=== PATIENT | male | born 1990 | race Caucasian/White ===

== ENCOUNTER 2024-12-22 03:23 | Inpatient (IN) | payer MEDICAID, SELFPAY ==
[2024-12-22] VITALS (21 sets, daily range): BP systolic 97–141; BP diastolic 52–84; PULSE 60–84; RESP 12–18; TEMP 36.3–37; O2SAT 96–100; BMI 22.8; BMI 24.0
[2024-12-22 04:14] LABS: Hematocrit 38.4 % (40-54); Hemoglobin 12.8 g/dL (13.0-16.5); Immature Granulocytes Count 0.270 X10^3/uL (0.0-0.0); Mean Corp Hgb Conc 33.3 g/dL (32-36); Mean Corpuscular Volume 88.1 fL (80-94); Mean Platelet Vol. 9.1 fl (6.2-12.0); NRBC Flagged by Analyzer 0 % (0-5); Platelet Count 580 K/mm3 (150-450); RBC Distribution Width CV 13.3 % (11.6-14.6); RBC Distribution Width SD 43.6 fl (35.1-43.9); Red Blood Count 4.36 M/mm3 (4.6-6.2); White Blood Count 13.4 K/mm3 (4.4-11.0)
[2024-12-22] MEDS: 0.9% Normal Saline (1000mL) 1,000 ML 999 ML IV (04:14)
[2024-12-22] MEDS: Vancomycin HCl 1,250 MG in 0.9% Normal Saline (250mL Bag) 250 ML 167 MG IV (04:18)
[2024-12-22 04:43] LABS: AST(SGOT) 36 U/L (<=37); Alanine Aminotransfer ALT/SGPT 105 U/L (<=46); Albumin, Serum 3.1 g/dL (3.5-5.0); Alcohol, Blood (Medical)-Serum < 10.1 mg/dL (<=10.0); Alkaline Phosphatase 129 U/L (40-129); Anion Gap 13 (5-15); BUN 8 mg/dL (4-19); BUN/Creat Ratio 10.6 RATIO (10-20); Bilirubin, Direct 0.20 mg/dL (0.00-0.30); Calcium,Total 8.8 mg/dL (7.6-11.0); Carbon Dioxide 23.3 mmol/L (21.0-32.0); Chloride 100 mmol/L (98-108); Estimated Creatinine Clearance 161.02 ml/min (50-250); Globulin 3.0 g/dL (2.2-4.2); Glucose 153 mg/dL (70-99); Magnesium 2.0 mg/dL (1.5-2.2); Potassium 3.3 mmol/L (3.3-5.1)
--- NOTE | 2024-12-22 05:15 | CT_ITS ---
PROCEDURE: ABDOMEN/PELVIS W IV CONT ONLY 12/22/2024 REASON FOR EXAM: LARGE ABDOMINAL ABSCESS TECHNIQUE: Procedure Code: [id number] Modality: CT Procedure: ABDOMEN/PELVIS W IV CONT ONLY Coronal and Sagittal reconstruction series were provided. CONTRAST: 98 cc Isovue-300 One or more dose reduction techniques were used (e.g., Automated exposure control, adjustment of the mA and/or kV according to patient size, use of iterative reconstruction technique. RADIATION DOSE SUMMARY: DLP: 972 mGycm COMPARISON: None FINDINGS: Lung bases: Clear Liver: Unremarkable Gallbladder: Unremarkable Spleen: Unremarkable Pancreas: Unremarkable Adrenals: Unremarkable Kidneys: Unremarkable Bladder: Unremarkable Reproductive Organs: Prostate calcifications are noted Bowel: Gas and stool is noted throughout the colon. Small bowel loops are nondistended. Appendix: Within normal limits Lymph nodes: There is no pathologic adenopathy by size criteria. Vasculature: There is no significant atherosclerosis Peritoneum / Retroperitoneum: There is no free air or free fluid Bones: There is no acute bony abnormality There is subcutaneous edema in the right anterior abdomen with heterogeneous loculated fluid collection, likely hematoma versus cellulitis along the margin of the right anterior rectus measuring 6.5 x 15 by 15 cm. No definite organized drainable component is identified. CT/Abdomen/Pelvis W IV Cont ONLY IMPRESSION: There is subcutaneous edema in the right anterior abdomen with heterogeneous lo culated fluid collection, likely hematoma versus cellulitis along the margin of the right anterior rectus measuring 6.5 x 15 by 15 cm. No definite organized drainable component is identified. Reading Location: [facility]
--- NOTE | 2024-12-22 06:14 | EX.ED.DYSGE1 ---
HPI History of Present Illness Chief Complaint: Wound Informant: patient Narrative Narrative: Patient is a 34-year-old male who reports no significant past medical history but also states he does not follow with a physician. He states he was recently in [place] as he works on the [employer]. He states he does not remember any type of injury to his abdomen but after returning home he noticed a small area of redness and pain along the right lower abdomen. He states he did not think much of this but as a week past it has continued to grow in size and now is starting to drain a yellowish-green fluid. He states that he has not had a fever with this and he denies any history of immunosuppression. He does admit that he drinks on average 6-12 beers per day. He states that he has not drank for the last 2 days but denies any symptoms of withdrawal such as palpitations anxiety nausea vomiting or hallucinations. However as the area has continued to increase in size and now is draining he is concerned he may need antibiotics and presents at this time [facility] Medical History no medical history Home Medications ?Medication ?Instructions ?Recorded ?Last Taken ?Type NK 12/22/24 Unknown History Allergy/AdvReac Type Severity Reaction Status Date / Time No Known Allergies Allergy Verified 12/22/24 03:26 Social History Smoking Status: Current every day smoker tobacco type: cigarettes ROS ROS ED Constitutional Constitutional ED: Denies chills or fever(s) ENT ENT ED: Denies sore throat Cardiovascular Cardiovascular: Denies chest pain Respiratory/Chest Respiratory/Chest: Denies cough or dyspnea Gastrointestinal Gastrointestinal: Reports abdominal pain; Denies diarrhea, nausea or vomiting Genitourinary Genitourinary ED: Denies dysuria Musculoskeletal Musculoskeletal: Denies myalgias Integumentary Reports abscess Neurologic Neurologic: Denies headache(s), paresthesias or weakness Hematologic/Lymphatic Hematologic/Lymphatic: Denies easy bleeding or easy bruising EXAM Physical Exam Const Vital Signs: 12/22/24 03:27 12/22/24 04:30 12/22/24 05:00 Temperature 98.0 F 98.1 F 98.0 F Temperature Source Oral Oral Oral Pulse Rate 81 83 78 Respiratory Rate 16 18 16 Blood Pressure 141/84 H 124/70 H 118/71 Blood Pressure Mean 103 88 86 Pulse Ox 100 98 99 Oxygen Delivery Method Room Air Room Air Room Air 12/22/24 05:23 12/22/24 06:00 Temperature 98.1 F Temperature Source Oral Pulse Rate 70 Respiratory Rate 18 Blood Pressure 118/71 111/67 Blood Pressure Mean 86 81 Pulse Ox 100 Oxygen Delivery Method Room Air Positive well nourished and well developed General Appearance ED: well developed HEENT HEENT Narrative: Normocephalic atraumatic Eyes PERRL and EOMs intact bilaterally General Eye ED: Negative for scleral icterus Neck supple Resp normal respiratory effort and clear to auscultation bilaterally Cardio regular rate and regular rhythm GI non-distended GI Narrative: The patient has a approximately 15 cm x 15 cm area of fluctuance with asymmetric erythema warmth and active purulent drainage along the right lower abdomen Auscultation: normoactive bowel sounds Palpation: soft Extremity normal to inspection Neuro oriented x3, CN's II-XII intact bilaterally and no sensory deficits noted Sensorium / Orientation: alert Motor Exam: strength 5/5 throughout Psych mental status grossly normal Skin Skin Narrative: Large area of abscess along the right lower abdominal wall as documented above with active drainage present MDM MDM MDM Narrative Medical decision making narrative: Patient arrived to the ER with stable vitals. He reported a lesion increasing in size and pain along the right lower abdomen over the past week with now active drainage. He denies any trauma prior to the onset of the lesion and he states he does not have a history of immunosuppression. Based on the large nature of the lesion there is concern of invasion through the abdominal wall into the abdominal cavity. Patient also reports he drinks alcohol daily and even though he denies any withdrawal symptoms at this time there is concern that he could progress to this or have electrolyte abnormality secondary to his persistent drinking. Patient blood work was obtained which shows a white count of 13.4 with left shift with neutrophil count of 10.3 concerning for developing systemic infection. Lactic acid was also slightly elevated consistent/concerning for developing infection. Otherwise remainder of the labs did not show any clinically significant finding. The CT scan confirmed a large area of affection along the right lower abdomen but it is localized to the abdominal wall and does not penetrate through it. Based on the large nature of the case was discussed with the general surgeon Dr. Melendez. He evaluated the patient in the ER and does agree that the patient should be admitted to the hospital for IV antibiotics as well as incision and drainage in the operating room. Therefore he will admit the patient to his service for this planed treatment History & Record Review Discussion w/independent historian: Patient Lab Data Attestation: I reviewed the patient's lab results. Labs: Laboratory Results - last 24 hr 12/22/24 04:05 WBC 13.4 H RBC 4.36 L Hgb 12.8 L Hct 38.4 L MCV 88.1 MCH 29.4 MCHC 33.3 RDW Std Deviation 43.6 RDW Coeff of Lan 13.3 Plt Count 580 H MPV 9.1 Immature Gran % (Auto) 2.000 H Neut % (Auto) 77.2 H Lymph % (Auto) 11.1 L Frontier % (Auto) 8.6 Eos % (Auto) 0.5 Baso % (Auto) 0.6 Absolute Neuts (auto) 10.3 H Absolute Lymphs (auto) 1.49 Nucleated RBC % 0 Sodium 136 Potassium 3.3 Chloride 100 Carbon Dioxide 23.3 Anion Gap 13 BUN 8 Creatinine 0.80 Estim Creat Clear Calc 161.02 Est GFR (MDRD) Non-Af 119 BUN/Creatinine Ratio 10.6 Glucose 153 H Lactic Acid 2.3 H* Calcium 8.8 Magnesium 2.0 Total Bilirubin 0.39 Direct Bilirubin 0.20 AST 36 ALT 105 H Alkaline Phosphatase 129 Total Protein 6.1 Albumin 3.1 L Globulin 3.0 Ethyl Alcohol < 10.1 Radiography Diagnostic Testing: Clinical Impression(s) from Imaging Studies Abdomen/Pelvis CT 12/22/24 05:15 IMPRESSION: There is subcutaneous edema in the right anterior abdomen with heterogeneous loculated fluid collection, likely hematoma versus cellulitis along the margin of the right anterior rectus measuring 6.5 x 15 by 15 cm. No definite organized drainable component is identified. Reading Location: [facility] Management Discussion w/another healthcare provider: Patent Leather Sorter Discharge Plan Dx/Rx/DC Orders Clinical Impression: Abdominal wall abscess, Alcohol use disorder Disposition Disposition: Acute Care [facility]
--- NOTE | 2024-12-22 07:11 | PCM.HP.STD ---
HPI - General HPI Narrative BALJINDER FERGUSON, is a 34 M who presents with lower abdominal abscess has been there for 1 week. He states that it started as a bump. It has grown very large. It is draining. PFSH Medical History no medical history Home Medications ?Medication ?Instructions ?Recorded ?Last Taken ?Type NK 12/22/24 Unknown History Allergy/AdvReac Type Severity Reaction Status Date / Time No Known Allergies Allergy Verified 12/22/24 03:26 Social History Smoking Status: Current every day smoker tobacco type: cigarettes ROS Constitutional Constitutional: Denies anorexia, chills, fatigue or fever(s) Eyes Eyes: Denies blurry vision ENT HEENT: Denies abnormal hearing Cardiovascular Cardiovascular: Denies chest pain Respiratory/Chest Respiratory/Chest: Denies cough or dyspnea Gastrointestinal Gastrointestinal: Reports abdominal pain; Denies nausea or vomiting Genitourinary Genitourinary: Denies change in urinary stream Integumentary Integumentary: Denies jaundice or new lesions Neurologic Neurologic: Denies abnormal gait Psychiatric Psychiatric: Denies anxiety Endocrine Endocrinology: Denies flushing Hematologic/Lymphatic Hematologic/Lymphatic: Denies easy bleeding Vital Signs Vital Signs Vital Signs: 12/22/24 03:27 12/22/24 04:30 12/22/24 05:00 Temperature 98.0 F 98.1 F 98.0 F Temperature Source Oral Oral Oral Pulse Rate 81 83 78 Respiratory Rate 16 18 16 Blood Pressure 141/84 H 124/70 H 118/71 Blood Pressure Mean 103 88 86 Pulse Ox 100 98 99 Oxygen Delivery Method Room Air Room Air Room Air 12/22/24 05:23 12/22/24 06:00 12/22/24 07:00 Temperature 98.1 F 98.6 F Temperature Source Oral Oral Pulse Rate 70 64 Respiratory Rate 18 18 Blood Pressure 118/71 111/67 112/68 Blood Pressure Mean 86 81 82 Pulse Ox 100 98 Oxygen Delivery Method Room Air Room Air Weight Weight: 192 lb 14.472 oz Body Mass Index (BMI) 22.8 Physical Exam Const oriented x3 and no apparent distress Resp normal respiratory effort GI soft to palpation GI Narrative: Large abscess in the right lower quadrant draining purulent material Extremity normal to inspection Results Lab / Micro Data 12/22/24 04:05 12/22/24 04:05 Labs: Laboratory Results - last 24 hr 12/22/24 04:05: WBC 13.4 H, RBC 4.36 L, Hgb 12.8 L, Hct 38.4 L, MCV 88.1, MCH 29.4, MCHC 33.3, RDW Std Deviation 43.6, RDW Coeff of Lan 13.3, Plt Count 580 H, MPV 9.1, Immature Gran % (Auto) 2.000 H, Neut % (Auto) 77.2 H, Lymph % (Auto) 11.1 L, Johnston % (Auto) 8.6, Eos % (Auto) 0.5, Baso % (Auto) 0.6, Absolute Neuts (auto) 10.3 H, Absolute Lymphs (auto) 1.49, Nucleated RBC % 0, Sodium 136, Potassium 3.3, Chloride 100, Carbon Dioxide 23.3, Anion Gap 13, BUN 8, Creatinine 0.80, Estim Creat Clear Calc 161.02, Est GFR (MDRD) Non-Af 119, BUN/Creatinine Ratio 10.6, Glucose 153 H, Lactic Acid 2.3 H*, Calcium 8.8, Magnesium 2.0, Total Bilirubin 0.39, Direct Bilirubin 0.20, AST 36, ALT 105 H, Alkaline Phosphatase 129, Total Protein 6.1, Albumin 3.1 L, Globulin 3.0, Ethyl Alcohol < 10.1 Imaging Radiology Impression Abdomen/Pelvis CT 12/22/24 05:15 IMPRESSION: There is subcutaneous edema in the right anterior abdomen with heterogeneous loculated fluid collection, likely hematoma versus cellulitis along the margin of the right anterior rectus measuring 6.5 x 15 by 15 cm. No definite organized drainable component is identified. Reading Location: [facility] Assessment & Plan Assessment/Plan (1) Abdominal wall abscess: PLAN: Patient has a large abdominal wall abscess that measures [address] scan. The patient is having purulent drainage. I recommend incision and drainage in the OR. I discussed this with the patient in detail. I discussed the risks including bleeding and infection and injury other organs. Patient understands the risks and is 1 to proceed. I will order him a bed upstairs start him on Banken Zosyn and taken for incision and drainage a little later this morning. Jack Hernandez MD Pager: [facility] [address] [place] [address], [address] [place] [address] Office:
[2024-12-22 07:41] LABS: Hematocrit 36.4 % (40-54); Hemoglobin 11.9 g/dL (13.0-16.5); Immature Granulocytes Count 0.280 X10^3/uL (0.0-0.0); Mean Corp Hgb Conc 32.7 g/dL (32-36); Mean Corpuscular Volume 89.2 fL (80-94); Mean Platelet Vol. 8.9 fl (6.2-12.0); NRBC Flagged by Analyzer 0 % (0-5); POSITIVE DIFFERENTIAL YES; Platelet Count 592 K/mm3 (150-450); RBC Distribution Width CV 13.4 % (11.6-14.6); RBC Distribution Width SD 43.8 fl (35.1-43.9); Red Blood Count 4.08 M/mm3 (4.6-6.2); White Blood Count 15.5 K/mm3 (4.4-11.0)
[2024-12-22 07:42] LABS: Differential Indicated SCAN CRITERIA MET
[2024-12-22] MEDS: 0.9% Normal Saline (1000mL) 1,000 ML 100 ML IV ×2 (07:47→21:07)
[2024-12-22] MEDS: Piperacil/Tazobactam 3.375 GM in 0.9% Normal Saline (50mL MB+) 50 ML IV ×3 (07:47→21:11)
[2024-12-22 08:09] LABS: Reflex Lactate? Y
[2024-12-22] MEDS: 0.9% Normal Saline (1000mL) 1,000 ML 15 ML IV (10:14)
--- NOTE | 2024-12-22 10:25 | PRE.ANES_ITS ---
ASA Classification* ASA Classification ASA Classification: 3 and E Assessment & Plan Anesthesia* Anesthesia Assessment Anesthesia Assessment: Discussed sedation and/or anesthesia options, risks, benefits, and alternatives with patient/parents/legal guardian/POA. Questions invited. The patient/parents/legal guardian/POA seems to understand and agrees to proceed with anesthesia plan. Reviewed the physical assessment, medical history, allergy history and patient home medications list prior to surgery/procedure/anesthetic and documented any changes. Performed airway and anesthesia risk assessments. Anesthesia Type Anesthesia Type: General History Source History Obtained from:: Patient and Chart Anesthesia Focused Assessment* Temperature: 98.2 F Pulse Rate: 76 Blood Pressure: 113/58 Respiratory Rate: 16 Pulse Ox: 100 Oxygen Delivery Method: Room Air Airway Assessment Mouth opens: >3 cm Mallampati Score: III Teeth Condition: Missing (Patient has couple missing teeth. Rest are tight.) Neck Range of motion (ROM): Limited ROM (Slight Decrease) Labs Anesthesia Preop lab: CBC WBC, (4.4-11.0) 15.5 K/mm3 H Today, 07:18 RBC, (4.6-6.2) 4.08 M/mm3 L Today, 07:18 Hgb, (13.0-16.5) 11.9 g/dL L Today, 07:18 Hct, (40-54) 36.4 % L Today, 07:18 Plt Count, (150-450) 592 K/mm3 H Today, 07:18 CHEMISTRY Potassium, (3.3-5.1) 3.3 mmol/L Today, 04:05 Sodium, (133-145) 136 mmol/L Today, 04:05 Magnesium, (1.5-2.2) 2.0 mg/dL Today, 04:05 BUN, (4-19) 8 mg/dL Today, 04:05 Creatinine, (0.70-1.20) 0.80 mg/dL Today, 04:05 Glucose, (70-99) 153 mg/dL H Today, 04:05 COAG Pre-Assessment Diagnosis/Proposed Procedure Planned Operative Procedure(s): Irrigation and debridement abdominal abscess. Anesthesia History Anesthesia History - community mental health social worker: Anesthesia History - community mental health social worker Hx Hospitalization Any Problems With Anesthesia No 12/22/24 08:53 Cholinesterase deficiency No 12/22/24 08:53 You/Your Family Experience No 12/22/24 08:53 fever (hyperthermia) with Relationship Recent Exposure to Contagious No 12/22/24 08:53 Disease Does patient have nerve No 12/22/24 08:53 stimulator Patient instructed to have No 12/22/24 08:53 device shut off --Does patient have Pacemaker No 12/22/24 08:42 or ICD? When Was Last Pacemaker Check QUESTION #4 FULL TEXT: You/Your Family Experience fever (hyperthermia) with Anesthesia Last Oral Intake Last Oral intake: Last Oral Intake NPO since 03:00 12/22/24 08:42 Meds taken in AM with sips of No 12/22/24 08:42 water? Meds patient instructed to water- rootbeer 12/22/24 08:42 take am of surgery PONV PONV - community mental health social worker: PONV - community mental health social worker Female HX of Motion Sickness HX of N/V After Surgery Non-Smoker Duration of Surgery greater than 60 minutes Number of Risk Factors PONV Score Height & Weight Height & Weight: Anesthesia: Height & Weight Height 6 ft 3 in 12/22/24 08:42 Weight: 87.5 kg 12/22/24 08:42 Body Mass Index (BMI) 24.0 12/22/24 08:42 Respiratory Assessment Respiratory Assessment - community mental health social worker: Respiratory Tract Infection Hx - community mental health social worker Hx Respiratory Tract Infection No 12/22/24 08:53 STOP Sleep Apnea STOP Sleep Apnea - community mental health social worker: STOP Sleep Apnea - community mental health social worker Hx Hypertension No 12/22/24 09:01 Hx Sleep Apnea No 12/22/24 09:01 CPAP BIPAP Do you snore loudly (louder No 12/22/24 09:01 than talking or can be heard Do you often feel tired/ No 12/22/24 09:01 fatigued/ sleepy during daytime? Has anyone observed you stop No 12/22/24 09:01 breathing during sleep? STOP Results Negative 12/22/24 09:01 QUESTION #5 FULL TEXT : Do you snore loudly (louder than talking or can be heard through closed doors)? Tobacco Use History Tobacco Use History - community mental health social worker: Tobacco Use History - community mental health social worker Tobacco Use Smoking Status Current every day smoker 12/22/24 09:01 Hx Tobacco Use Yes 12/22/24 09:01 Years Smoking Packs Smoked per Day Smoking Cessation Date was within the last 15 years Hx Smoking Cessation Date Hx Smoking Cessation Counseling Any additional information?: Yes Smoking Status: Current every day smoker (Patient did not smoke today.) Hematologic Medial History Hematologic Hx - community mental health social worker: Hematologic Medical Hx - field ironworker Hx of Blood Transfusion No 12/22/24 09:01 Hx of Transfusion in last 3 No 12/22/24 09:01 Months Date of Last Transfusion (if within last 3 months) Ever experience any problems No 12/22/24 09:01 with transfusion(s)? Specify any problems Hx of Preganancy in last 3 N/A 12/22/24 09:01 Months Nurse Filling Out Transfusion ACOEY 12/22/24 09:01 & Questions: Date: 12/22/24 12/22/24 09:01 Time: 09:02 12/22/24 09:01 Patient unable to answer at this time (ie. confused, unrespo /Reproduction History /Reproductive History - community mental health social worker: /Reproductive Hx- community mental health social worker Hx Now No 12/22/24 08:53 Gestational Age (in weeks): EDC: Hx Hx Para Hx Section SAB No 12/22/24 08:53 Active Medications Active Medications: Current Medications Generic Name Dose Route Start Last Admin Trade Name Freq PRN Reason Stop Dose Admin Sodium Chloride 1,000 mls @ 100 mls/hr 12/22/24 07:05 12/22/24 07:47 IV 100 mls/hr .Q10H MARCUS Administration Piperacillin Sod/Tazobactam 50 mls @ 12.5 mls/hr 12/22/24 14:00 Sod 3.375 gm/ Sodium Chloride IV Q8 MARCUS Sodium Chloride 250 mls @ 15 mls/hr 12/22/24 08:41 IV .[id number] PRN Saline Flush Sodium Chloride 250 mls @ 15 mls/hr 12/22/24 08:41 IV .[id number] PRN Additional IVPB Infusion Sodium Chloride 1,000 mls @ 15 mls/hr 12/22/24 10:15 12/22/24 10:14 IV 15 mls/hr .Q48H MARCUS Administration Morphine Sulfate 2 - 4 mg 12/22/24 07:01 Morphine 2 Mg/Ml Syringe IV Q2H PRN PRN Pain Score 4-10 Ondansetron HCl 4 mg 12/22/24 07:01 Ondansetron 4 Mg/2 Ml Vial IV Q6H PRN PRN NAUSEA/VOMITING Sodium Chloride 10 - 40 ml 12/22/24 07:01 0.9% Saline Lock 10 Ml Syringe IV UD PRN SALINE FLUSH Sodium Chloride 10 - 40 ml 12/22/24 07:01 0.9% Saline Lock 10 Ml Syringe IV UD PRN SALINE FLUSH Sodium Chloride 10 - 40 ml 12/22/24 08:41 0.9% Saline Lock 10 Ml Syringe IV UD PRN SALINE FLUSH PFSH Medical History no medical history Home Medications ?Medication ?Instructions ?Recorded ?Last Taken ?Type NK 12/22/24 Unknown History Allergy/AdvReac Type Severity Reaction Status Date / Time No Known Allergies Allergy Verified 12/22/24 10:07 Surgical History History of hernia surgery H/O shoulder surgery Social History Smoking Status: Current every day smoker tobacco type: cigarettes Review of Systems (Anesthesia) ROS Narrative System reviewed and no additional complaints, except as documented.
[2024-12-22] MEDS: Midazolam 2 MG/2 ML Syringe IV (10:50)
[2024-12-22] MEDS: Lidocaine 1% (5 ml sdv) 5 ML Vial 10 ML IV (10:56)
[2024-12-22] MEDS: fentaNYL 100 MCG/2 ML Ampul IV (11:09)
[2024-12-22] MEDS: Bupiv/Epi 0.25% 30 ML Vial (11:30)
[2024-12-22] MEDS: dexMEDEtomidine 200 MCG/2 ML ML 20 MCG IV (11:34)
--- NOTE | 2024-12-22 11:38 | OP.PCM_ITS ---
Operative Report (Standard) Operative Information Date of Procedure: 12/22/24 Pre-Operative Diagnosis: Abdominal wall abscess Post-Operative Diagnosis: Abdominal wall abscess Surgery/Procedure Performed: Abdominal wall abscess incision and drainage with debridement petroleum refinery operator: Yes Oracle Architect: Vernon Coleman Tasks completed by graduate assistant athletic trainer: Opening, Closing and Retracting Type of Anesthesia: General/Regional RN Documented Start/Stop Times: Operation Date: 12/22/24 08:00 Case Time Into Pre-Op 12/22/24 09:56 Out of Pre-Op 12/22/24 10:48 Anesthesia Start 12/22/24 10:50 Into Room 12/22/24 10:50 Procedure Start 12/22/24 11:04 Procedure Start Time: 11:04 Procedure Stop Time: 11:42 Select all DRAINS/GRAFTS/IMPLANTS that apply: None Estimated Blood Loss: 100 Specimen collected: Yes Description of specimen(s) removed: Culture of the fluid Description of surgery: Patient was brought back to the operating room and general anesthesia was induced. The abdomen was prepped and draped in usual sterile fashion. An incision was made across the necrotic area of the anterior abdominal wall and it there is copious amounts of purulence and blood clot expressed. The fat appeared to be necrotic. The fat was debrided back to healthy tissue and hemoblast was used to obtain hemostasis. Pressure was held and then the area was irrigated with pulse lavage. The skin edges started to become necrotic during the procedure so the skin edges were resected. Electrocautery was used to maintain hemostasis. Next the wound was packed with Betadine soaked Curlex and an ABD was placed over it. Patient was taken to PACU in stable condition. Surgical Findings: Large abscess cavity measuring 15 cm x 6 cm x 10 cm Complications Complications: No Admit VTE Documentation VTE Mechan Device Prophylaxis: SCD's
--- NOTE | 2024-12-22 11:45 | PCM.POST.ANE ---
Anesthesia: Postop Eval I Current Vital Signs Temperature: 98.4 F Pulse Rate: 74 Blood Pressure: 97/52 Respiratory Rate: 16 Pulse Ox: 96 Assessment Airway patent: Yes Spontaneous unlabored respirations: Yes nausea: No Vomiting: No Anesthesia Complication: No Fluid Hydration Crystalloid volume administer (ml): 800 Total IV fluid infused: 800 Progress Note Anesthesia document: Postop Eval 1 completed: Yes
--- NOTE | 2024-12-22 12:32 | POSTOPAN2_ITS ---
Anesthesia Postop Eval I Sum Postop Eval Completion status Anesthesia document: Postop Eval 1 completed: Yes Anesthesia Postop Eval I Summary Anesthesia Postop Eval I Summary: Anesthesia Postop Eval I: Assessment Summary Airway patent Yes 12/22/24 11:45 NITROGLYCERIN DISTRIBUTOR.TNES Spontaneous unlabored Yes 12/22/24 11:45 NITROGLYCERIN DISTRIBUTOR.TNES respirations Mental status nausea No 12/22/24 11:45 NITROGLYCERIN DISTRIBUTOR.TNES Vomiting No 12/22/24 11:45 NITROGLYCERIN DISTRIBUTOR.TNES Anesthesia Postop Eval I: Fluid Summary Crystalloid volume administer 800 12/22/24 11:45 NITROGLYCERIN DISTRIBUTOR.TNES (ml) Colloids volume administered ( ml) Blood Product volume administered (ml) Total IV fluid infused 800 12/22/24 11:45 NITROGLYCERIN DISTRIBUTOR.TNES Anesthesia Postop Eval I: Summary Notes Anesthesia Complication No 12/22/24 11:45 NITROGLYCERIN DISTRIBUTOR.TNES Anesthesia Complication Comment: Post-operative progress note Anesthesia: Postop Eval II Evaluation Mental status: Awake and Calm Pain Level: 2 nausea: No Vomiting: No Complications Anesthesia Complication: No
--- NOTE | 2024-12-22 12:32 | PCM.POSTANE2 ---
Anesthesia Postop Eval I Sum Postop Eval Completion status Anesthesia document: Postop Eval 1 completed: Yes Anesthesia Postop Eval I Summary Anesthesia Postop Eval I Summary: Anesthesia Postop Eval I: Assessment Summary Airway patent Yes 12/22/24 11:45 INTERNET APPLICATION [email or web address] Spontaneous unlabored Yes 12/22/24 11:45 INTERNET APPLICATION [email or web address] respirations Mental status nausea No 12/22/24 11:45 INTERNET APPLICATION [email or web address] Vomiting No 12/22/24 11:45 INTERNET APPLICATION [email or web address] Anesthesia Postop Eval I: Fluid Summary Crystalloid volume administer 800 12/22/24 11:45 INTERNET APPLICATION [email or web address] (ml) Colloids volume administered ( ml) Blood Product volume administered (ml) Total IV fluid infused 800 12/22/24 11:45 INTERNET APPLICATION [email or web address] Anesthesia Postop Eval I: Summary Notes Anesthesia Complication No 12/22/24 11:45 INTERNET APPLICATION [email or web address] Anesthesia Complication Comment: Post-operative progress note Anesthesia: Postop Eval II Evaluation Mental status: Awake and Calm Pain Level: 2 nausea: No Vomiting: No Complications Anesthesia Complication: No
--- NOTE | 2024-12-22 14:20 | CASEMGMT ---
Addendum entered by Milli Barakat 12/22/24 15:06: Pt states he smokes a 1/2 ppd of cigarettes per day and drinks 6-12 beers a day. Pt states he is working to stop but has bad days. Pt denies need for any resources for cessation. Original Note: DENIS NAJERA Assessment: Face to Face with pt for initial transition planning/care coordination assessment. DENIS NAJERA introduced self and role at [facility], pt voices understanding and consents to assessment. Pt is A&O x4 and answers all questions appropriately at this time. Pt sitting up in bed in no distress. Care providers, pharmacy, and demographics verified/updated. Admitting Dx: abdominal wall abscess Strata Score: 1 PCP:Denies, provided pt with a local healthcare directory. Pt denies need for assistance with setting up PCP. Specialists:Denies Preferred Pharmacy:[facility] Insurance: [employer] Prescription Benefit: yes LNOK: Jorge Jaimes, brother Living Arrangements: Pt lives with brother, cristina and 2 children in a two story home with 2 steps to enter. Pt reports he is I in ADL/IADLs and denies concerns at home. Transportation: Pt drives self and denies concerns with transportation. DME:Denies HHC/SNF: Denies hx of Pt states no concerns with going home at time of dc. Pt is aware that he will need wound care upon dc. Pt states he feels that he can perform this or someone in his home could assist. DENIS NAJERA to follow up with him after dressing change tomorrow. Pt states no further concerns/needs. CM to follow. Advised pt to ask CM if any further questions/concerns/needs arise, voices understanding. Pt Goal: Home Plan: Home Shalom BARRIOS CM
--- NOTE | 2024-12-22 15:27 | PCM.RX.CS ---
Consult Antibiotic Management Pharmacy has been consulted to manage selected antibiotic: Vancomycin Type of Intervention Type of Consult: New start Suspected Infection Suspected Infection: Other (Abdominal wall Abscess) Prior Doses of Antibiotics Prior Doses of Antibiotics Received/Current Regimen: x1 1250 mg 12/22/2024 @0418 Labs Labs: Sodium 136 mmol/L (133-145) 12/22/24 04:05 Potassium 3.3 mmol/L (3.3-5.1) 12/22/24 04:05 Chloride 100 mmol/L (98-108) 12/22/24 04:05 Carbon Dioxide 23.3 mmol/L (21.0-32.0) 12/22/24 04:05 Anion Gap 13 (5-15) 12/22/24 04:05 BUN 8 mg/dL (4-19) 12/22/24 04:05 Creatinine 0.80 mg/dL (0.70-1.20) 12/22/24 04:05 Est GFR (MDRD) Non-Af 119 (>60) 12/22/24 04:05 BUN/Creatinine Ratio 10.6 RATIO (10-20) 12/22/24 04:05 Glucose 153 mg/dL (70-99) H 12/22/24 04:05 Dosing Weight Weight used for dosin.5 kg Estimated Creatinine Clearance Estimated Creatinine Clearance: 161.02 Goal Trough Goal Trough: 10-15 mcg/mL Pharmacy Plan for Drug Dosing Pharmacy Plan for Drug Dosing: NEW START IV VANCOMYCIN Consulting Physician: Dr. Yip Indication: Abdominal Wall Abscess Goal Trough: 10-15 SrCr: 0.80 mg/dL CrCl: 161.02 ml/min Comments: Patient received dose (1250 mg) back at 0418 12/22/2024 which is considered loading dose. Vancomycin Dose: 1500 mg Q12H Pending Level: 12/23/2024 Pharmacy Service will continue to monitor and adjust dosing as required. Follow-Up Labs Follow-Up Labs: Trough: Vancomycin Date/Time Labs Ordered Labs to be done on [date and time ordered]: 12/23/2024 @1530
[2024-12-22] MEDS: 0.9% Normal Saline (250mL Bag) 250 ML 15 ML IV (16:34)
[2024-12-22] MEDS: Vancomycin HCl 1,500 MG in 0.9% Normal Saline (500mL Bag) 500 ML 250 MG IV (16:34)
[2024-12-23 01:14] VITALS: BP 114/71; PULSE 71; RESP 16; TEMP 36.4; O2SAT 100
[2024-12-23] MEDS: Vancomycin HCl 1,500 MG in 0.9% Normal Saline (500mL Bag) 500 ML 250 MG IV (03:54)
[2024-12-23 06:01] VITALS: BP 115/70; PULSE 73; RESP 16; TEMP 36.6; O2SAT 96
[2024-12-23] MEDS: Piperacil/Tazobactam 3.375 GM in 0.9% Normal Saline (50mL MB+) 50 ML IV ×3 (06:05→22:18)
[2024-12-23 06:51] LABS: Hematocrit 32.3 % (40-54); Hemoglobin 10.6 g/dL (13.0-16.5); Immature Granulocytes Count 0.390 X10^3/uL (0.0-0.0); Mean Corp Hgb Conc 32.8 g/dL (32-36); Mean Corpuscular Volume 89.5 fL (80-94); Mean Platelet Vol. 8.8 fl (6.2-12.0); NRBC Flagged by Analyzer 0 % (0-5); Platelet Count 560 K/mm3 (150-450); RBC Distribution Width CV 13.1 % (11.6-14.6); RBC Distribution Width SD 43.1 fl (35.1-43.9); Red Blood Count 3.61 M/mm3 (4.6-6.2); White Blood Count 10.6 K/mm3 (4.4-11.0)
[2024-12-23] MEDS: 0.9% Saline Lock 10 ML Syringe IV ×2 (06:55→22:21)
--- NOTE | 2024-12-23 07:16 | WOUNDNOTE ---
wound photo: right lower abdomen
--- NOTE | 2024-12-23 07:22 | PN.SURG_ITS ---
Subjective Subjective Patient has no new complaints or issues overnight Objective Data Objective Data Vital Signs: Vital Signs Temp Pulse Resp BP Pulse Ox O2 Del Method 97.8 F 73 16 115/70 96 Room Air 12/23/24 06:01 12/23/24 06:01 12/23/24 06:01 12/23/24 06:01 12/23/24 06:01 12/23/24 06:01 Oxygen Delivery Method Room Air Weight: 192 lb 14.472 oz Body Mass Index (BMI) 24.0 Intake & Output: Intake and Output for Last 24 Hours 12/21/24 12/22/24 12/23/24 23:59 23:59 23:59 Intake Total 3305 / 3305 998.50 / 998.50 Output Total 100 / 100 Balance 3205 / 3205 998.50 / 998.50 Lab / Micro Data 12/23/24 06:32 12/22/24 04:05 Labs: Laboratory Results - last 24 hr 12/22/24 07:18: WBC 15.5 H, RBC 4.08 L, Hgb 11.9 L, Hct 36.4 L, MCV 89.2, MCH 29.2, MCHC 32.7, RDW Std Deviation 43.8, RDW Coeff of Lan 13.4, Plt Count 592 H, MPV 8.9, Immature Gran % (Auto) 1.800 H, Neut % (Auto) 73.4 H, Lymph % (Auto) 11.9 L, [place] % (Auto) 11.8 H, Eos % (Auto) 0.6, Baso % (Auto) 0.5, Absolute Neuts (auto) 11.3 H, Absolute Lymphs (auto) 1.84, Nucleated RBC % 0, Differential Comment COMMENT 12/22/24 08:24: Lactic Acid 1.3 12/23/24 06:32: WBC 10.6, RBC 3.61 L, Hgb 10.6 L, Hct 32.3 L, MCV 89.5, MCH 29.4, MCHC 32.8, RDW Std Deviation 43.1, RDW Coeff of Lan 13.1, Plt Count 560 H, MPV 8.8, Immature Gran % (Auto) 3.700 H, Neut % (Auto) 63.1, Lymph % (Auto) 21.7, [place] % (Auto) 10.0, Eos % (Auto) 0.9, Baso % (Auto) 0.6, Absolute Neuts (auto) 6.7, Absolute Lymphs (auto) 2.31, Nucleated RBC % 0 Physical Exam Const oriented x3 and no apparent distress Resp normal respiratory effort GI soft to palpation Palpation: tender Assessment & Plan Assessment/Plan (1) Abdominal wall abscess: PLAN: Patient is doing well. Packing was removed this morning and the wound was inspected. There is no necrosis. There is still some minimal erythema. Continue Vanco and Zosyn. Cultures pending. I will give him a diet today and make him n.p.o. after midnight in case more debridement is needed tomorrow. Jack Hernandez MD Pager: [facility] [address] [place] [address], [address] [place] [address] Office:
[2024-12-23 07:36] LABS: Anion Gap 7 (5-15); BUN 6 mg/dL (4-19); BUN/Creat Ratio 9.3 RATIO (10-20); Calcium,Total 8.2 mg/dL (7.6-11.0); Carbon Dioxide 23.7 mmol/L (21.0-32.0); Chloride 109 mmol/L (98-108); Estimated Creatinine Clearance 185.68 ml/min (50-250); Glucose 95 mg/dL (70-99); Potassium 3.8 mmol/L (3.3-5.1)
[2024-12-23] MEDS: 0.9% Normal Saline (1000mL) 1,000 ML 100 ML IV ×2 (07:50→19:18)
[2024-12-23 08:46] VITALS: BP 108/71; PULSE 70; RESP 16; TEMP 36.7; O2SAT 100
[2024-12-23] MEDS: DAKIN'S SOL HALF STRENGTH (=0.25%) TOPICAL ×2 (08:57→22:25)
--- NOTE | 2024-12-23 10:20 | CASEMGMT ---
Discharge Planning A list of?HH providers including quality and resource use data and consistent with the patient's preferred geographic region, medical needs, and insurance network was created in CarePort Guide.? This list was provided to the RN REINALDO. Tanya Norris, Discharge Planning Asst.
[2024-12-23 13:57] VITALS: BP 106/57; PULSE 84; RESP 16; TEMP 36.6; O2SAT 100
--- NOTE | 2024-12-23 15:12 | CASEMGMT ---
Addendum entered by Milli Barakat 12/23/24 16:02: [facility] declined referral. TC to [facility], left vm with referral, will await decision to accept. Addendum entered by Milli Barakat 12/23/24 15:52: Referral sent to [facility] for HHC via careport at this time. Per Mary Beth wound nurse, will follow for [facility]. Addendum entered by Milli Barakat 12/23/24 15:32: DENIS CM back to pt room, pt states he has chosen 1. [facility] 2. [facility] 3. [facility]. Pt states if none of these agencies accept, he has no preference after. Original Note: Spoke with wound nurse who states pt may have a wound vac placed tomorrow. She will confirm that Dr. Hernandez will follow for the [facility] as pt does not have PCP. DENIS NAJERA into pt room, provided pt with a HHC list created by dc ophthalmic surgical assistant. Pt to review and DENIS NAJERA to check back on pt top 3 choices.
--- NOTE | 2024-12-23 16:09 | WOUNDNOTE ---
Awaiting approval for home VAC through [employer] since pt's insurance does not contract with [facility]. manager background trying to find home health care for VAC changes. plan is for VAC application if wound continues to improve.
[2024-12-23] MEDS: Vancomycin Trough/Random Due 1 LAB MC (17:45)
[2024-12-23 18:40] LABS: Vancomycin, Trough Level 8.8 ug/mL (5.0-15.0)
[2024-12-23] MEDS: Vancomycin HCl 1,750 MG in 0.9% Normal Saline (500mL Bag) 500 ML 250 MG IV (19:18)
--- NOTE | 2024-12-23 19:19 | PCM.RX.CS ---
Consult Antibiotic Management Pharmacy has been consulted to manage selected antibiotic: Vancomycin Type of Intervention Type of Consult: Follow-up Labs Labs: Sodium 140 mmol/L (133-145) 12/23/24 06:32 Potassium 3.8 mmol/L (3.3-5.1) 12/23/24 06:32 Chloride 109 mmol/L (98-108) H 12/23/24 06:32 Carbon Dioxide 23.7 mmol/L (21.0-32.0) 12/23/24 06:32 Anion Gap 7 (5-15) 12/23/24 06:32 BUN 6 mg/dL (4-19) 12/23/24 06:32 Creatinine 0.67 mg/dL (0.70-1.20) L 12/23/24 06:32 Est GFR (MDRD) Non-Af 126 (>60) 12/23/24 06:32 BUN/Creatinine Ratio 9.3 RATIO (10-20) L 12/23/24 06:32 Glucose 95 mg/dL (70-99) 12/23/24 06:32 Vancomycin Trough 8.8 ug/mL (5.0-15.0) 12/23/24 15:29 Microbiology Microbiology: Microbiology 12/22/24 11:15 Wound Abcess - Aerobic & Anaerobic Swabs Gram Stain - Final 12/22/24 11:15 Wound Abcess - Aerobic & Anaerobic Swabs Wound Culture - Preliminary No growth-Final to follow Pharmacy Plan for Drug Dosing Pharmacy Plan for Drug Dosing: VANCOMYCIN LEVEL RECEIVED Current Vancomycin Dose: 1500MG Q12 Number of Doses Received: 3 Vancomycin Level: 8.8 mg/dL Hours Since Last Dose: 11.5 Renal Function: SCr 0.67 mg/dL, CrCl 185 mL/min Renal Function Trend: stable Lab/Micro: blood and wound cx pending Vancomycin Plan/Comments: Spoke to Apurva in lab ~1830 as the trough was still showing as pending but was drawn at 1529. She said the vial was missed and had not been run yet, level came back ~1850. 11.5 hour trough came back subtherapeutic at 8.8 mg/dL (goal 10-15). Will increase dose to 1750mg and get a trough prior to 4th dose of new regimen. Pending Level: 12/25/24 @ 0630 Pharmacy Service will continue to monitor and adjust dosing as required.
[2024-12-23 22:12] VITALS: BP 120/72; PULSE 70; RESP 16; TEMP 36.8; O2SAT 100
[2024-12-24 03:28] VITALS: BP 116/72; PULSE 72; RESP 16; TEMP 36.6; O2SAT 100
[2024-12-24] MEDS: 0.9% Normal Saline (1000mL) 1,000 ML 100 ML IV ×2 (05:35→14:11)
[2024-12-24] MEDS: Piperacil/Tazobactam 3.375 GM in 0.9% Normal Saline (50mL MB+) 50 ML IV ×3 (05:37→21:27)
[2024-12-24] MEDS: Vancomycin HCl 1,750 MG in 0.9% Normal Saline (500mL Bag) 500 ML 250 MG IV ×2 (06:52→18:00)
[2024-12-24] MEDS: 0.9% Saline Lock 10 ML Syringe IV (06:52)
--- NOTE | 2024-12-24 07:24 | PCM.PN.SRG ---
Subjective Subjective Patient reports he is doing well. Objective Data Objective Data Vital Signs: Vital Signs Temp Pulse Resp BP Pulse Ox O2 Del Method 97.9 F 72 16 116/72 100 Room Air 12/24/24 03:28 12/24/24 03:28 12/24/24 03:28 12/24/24 03:28 12/24/24 03:28 12/24/24 03:28 Oxygen Delivery Method Room Air Weight: 192 lb 14.472 oz Body Mass Index (BMI) 24.0 Intake & Output: Intake and Output for Last 24 Hours 12/22/24 12/23/24 12/24/24 23:59 23:59 23:59 Intake Total 3305 / 3305 3633.50 / 3633.50 1050 / 1050 Output Total 100 / 100 Balance 3205 / 3205 3633.50 / 3633.50 1050 / 1050 Lab / Micro Data 12/23/24 06:32 12/23/24 06:32 Labs: Laboratory Results - last 24 hr 12/23/24 06:32: Sodium 140, Potassium 3.8, Chloride 109 H, Carbon Dioxide 23.7, Anion Gap 7, BUN 6, Creatinine 0.67 L, Estim Creat Clear Calc 185.68, Est GFR (MDRD) Non-Af 126, BUN/Creatinine Ratio 9.3 L, Glucose 95, Calcium 8.2 12/23/24 15:29: Vancomycin Trough 8.8 Micro: Microbiology 12/22/24 04:10 Blood Culture (Wb) - Anticubital Right Blood Culture - Preliminary No growth in 48 hours. 12/22/24 04:05 Blood Culture (Wb) - Left Hand Blood Culture - Preliminary No growth in 48 hours. 12/22/24 11:15 Wound Abcess - Aerobic & Anaerobic Swabs Gram Stain - Final 12/22/24 11:15 Wound Abcess - Aerobic & Anaerobic Swabs Wound Culture - Preliminary No growth-Final to follow Physical Exam Const oriented x3 and no apparent distress Resp normal respiratory effort GI soft to palpation Inspection: Negative for abdominal distention Assessment & Plan Assessment/Plan (1) Abdominal wall abscess: PLAN: There is no necrosis inside of the wound. There is still some erythema around the wound. No purulence. As there is still some cellulitis I would like to keep him on IV antibiotics until the cultures are returned. Plan for wound VAC tomorrow and likely discharge tomorrow. Jack Hernandez MD Pager: [facility] [address] [place] [address], [address] [place] [address] Office:
[2024-12-24 08:00] VITALS: BP 127/78; PULSE 73; RESP 14; TEMP 36.7; O2SAT 100
[2024-12-24] MEDS: DAKIN'S SOL HALF STRENGTH (=0.25%) TOPICAL ×2 (08:08→21:29)
[2024-12-24 08:10] LABS: Hematocrit 33.4 % (40-54); Hemoglobin 10.5 g/dL (13.0-16.5); Immature Granulocytes Count 0.330 X10^3/uL (0.0-0.0); Mean Corp Hgb Conc 31.4 g/dL (32-36); Mean Corpuscular Volume 92.3 fL (80-94); Mean Platelet Vol. 9.1 fl (6.2-12.0); NRBC Flagged by Analyzer 0 % (0-5); Platelet Count 606 K/mm3 (150-450); RBC Distribution Width CV 13.2 % (11.6-14.6); RBC Distribution Width SD 44.6 fl (35.1-43.9); Red Blood Count 3.62 M/mm3 (4.6-6.2); White Blood Count 7.1 K/mm3 (4.4-11.0)
[2024-12-24 08:35] LABS: Anion Gap 8 (5-15); BUN 6 mg/dL (4-19); BUN/Creat Ratio 8.4 RATIO (10-20); Calcium,Total 8.6 mg/dL (7.6-11.0); Carbon Dioxide 24.3 mmol/L (21.0-32.0); Chloride 108 mmol/L (98-108); Estimated Creatinine Clearance 168.11 ml/min (50-250); Glucose 92 mg/dL (70-99); Potassium 4.1 mmol/L (3.3-5.1)
--- NOTE | 2024-12-24 09:59 | CASEMGMT ---
Addendum entered by Milli Barakat 12/24/24 13:30: DENIS NAJERA into pt room, pt has chosen [facility] for PCP. Pt states he has no preference of doctor, whichever one can get him in the soonest. Addendum entered by Milli Barakat 12/24/24 11:48: DENIS NAJERA into pt room, pt aware that [facility] has accepted him. Pt is aware that they requested that he have a PCP appt set up prior to dc. Pt to review PCP list and DENIS NAJERA to check back on his choice. Pt states he works at [employer] and does the [email or web address] on the side. Pt denies any further needs at this time. Original Note: Received tc from Nury at [facility], pt is accepted for care and they would like him to obtain a PCP appt prior to dc.
--- NOTE | 2024-12-24 11:19 | DCINST_ITS ---
Discharge Instructions DC O2, CPAP, BIPAP needs Home O2 Discharge instructions: No Dressing / Incision Discharge Activity: May Not Drive (3-5 days or while taking narcotic pain medication) Lifting Restrictions: no lifting greater than 20 pounds Dressing / Incision Call your doctor if your incision/area has: Continuous Slow Oozing, Sudden Increased Bleeding, Increased Pain/ Swelling, Increased Redness, Foul Smelling Discharge and Swelling at the incision site Call your doctor if you observe: Fever of 101 or Higher Suture Line Care: Avoid Pulling/Pushing and Avoid Pinching/Bending Cleanse incision/area with: Soap & Water Follow Up Care Please Follow Up With: Maryjane Oliveira PA-C When: Please contact our office at [phone], option #2 to schedule a follow- up appointment with our office Test Results: Test results from this visit will be discussed in further detail at your follow- up appointment, if applicable. Discharge Plan Admission Admit Date/Time: 12/22/24 07:01 Primary Reason for Your Visit: Abdominal wall abscess Attending Provider: Jack Hernandez Primary Care Provider: Kristie Martin,Avis Primary Instructions Additional Instructions / Restrictions: You will be sent home with a wound vac that will need to be changed 3 times per week You will need to follow-up with our office in 1 week for wound evaluation You will be sent home on oral antibiotics for 8 additional days Please contact our office at [phone], option #2 to schedule a follow-up appointment for 1 week Recommend follow-up on a Saturday, Saturday or Saturday to stay consistent with the wound vac change days Please bring one of the wound vac packs, that will be delivered to your home, with you to your appointment, so the wound vac can be changed Discharge Orders/Prescriptions Prescriptions: New oxycodone 5 mg Tablet 5 mg PO Q6H PRN PRN (Reason: Pain Score 4-10) 4 Days Qty: 20 0RF amoxicillin-pot clavulanate 875-125 mg Tablet 1 tab PO BIDCM 8 Days Qty: 16 0RF Referrals / Follow Up: Care Physician,No Primary [Primary Care Provider, Medical] Maryjane Oliveira PA-C [Med Staff - Adv Practice Prof, Surgery] - Within 1 Week Disposition Disposition (needs filled in before D/C Order can be placed): Home, Self Care
[2024-12-24 14:00] VITALS: BP 120/64; PULSE 82; RESP 14; TEMP 36.4; O2SAT 100
[2024-12-24 21:37] VITALS: BP 106/57; PULSE 73; RESP 16; TEMP 36.4; O2SAT 100
[2024-12-25] MEDS: 0.9% Normal Saline (1000mL) 1,000 ML 100 ML IV ×2 (01:03→10:16)
[2024-12-25] MEDS: Piperacil/Tazobactam 3.375 GM in 0.9% Normal Saline (50mL MB+) 50 ML IV (05:35)
[2024-12-25 05:39] VITALS: BP 134/89; PULSE 73; RESP 15; TEMP 36.9; O2SAT 100
[2024-12-25 07:27] VITALS: BP 123/82; PULSE 69; RESP 14; TEMP 36.3; O2SAT 99
[2024-12-25 07:32] LABS: Hematocrit 33.6 % (40-54); Hemoglobin 10.9 g/dL (13.0-16.5); Immature Granulocytes Count 0.270 X10^3/uL (0.0-0.0); Mean Corp Hgb Conc 32.4 g/dL (32-36); Mean Corpuscular Volume 90.6 fL (80-94); Mean Platelet Vol. 8.7 fl (6.2-12.0); NRBC Flagged by Analyzer 0 % (0-5); Platelet Count 676 K/mm3 (150-450); RBC Distribution Width CV 13.2 % (11.6-14.6); RBC Distribution Width SD 43.7 fl (35.1-43.9); Red Blood Count 3.71 M/mm3 (4.6-6.2); White Blood Count 7.9 K/mm3 (4.4-11.0)
[2024-12-25 07:48] LABS: Anion Gap 9 (5-15); BUN 6 mg/dL (4-19); BUN/Creat Ratio 7.3 RATIO (10-20); Calcium,Total 7.5 mg/dL (7.6-11.0); Carbon Dioxide 25.4 mmol/L (21.0-32.0); Chloride 109 mmol/L (98-108); Estimated Creatinine Clearance 163.69 ml/min (50-250); Glucose 116 mg/dL (70-99); Potassium 4.0 mmol/L (3.3-5.1)
[2024-12-25 08:01] LABS: Vancomycin, Trough Level 12.4 ug/mL (5.0-15.0)
--- NOTE | 2024-12-25 08:22 | PCM.RX.CS ---
Consult Antibiotic Management Pharmacy has been consulted to manage selected antibiotic: Vancomycin Type of Intervention Type of Consult: Follow-up Suspected Infection Suspected Infection: Skin/Soft tissue Prior Doses of Antibiotics Prior Doses of Antibiotics Received/Current Regimen: current dose is vanc 1750mg IV q12h Labs Labs: Sodium 143 mmol/L (133-145) 12/25/24 07:07 Potassium 4.0 mmol/L (3.3-5.1) 12/25/24 07:07 Chloride 109 mmol/L (98-108) H 12/25/24 07:07 Carbon Dioxide 25.4 mmol/L (21.0-32.0) 12/25/24 07:07 Anion Gap 9 (5-15) 12/25/24 07:07 BUN 6 mg/dL (4-19) 12/25/24 07:07 Creatinine 0.76 mg/dL (0.70-1.20) 12/25/24 07:07 Est GFR (MDRD) Non-Af 121 (>60) 12/25/24 07:07 BUN/Creatinine Ratio 7.3 RATIO (10-20) L 12/25/24 07:07 Glucose 116 mg/dL (70-99) H 12/25/24 07:07 Vancomycin Trough 12.4 ug/mL (5.0-15.0) 12/25/24 07:07 Microbiology Microbiology: Microbiology 12/22/24 11:15 Wound Abcess - Aerobic & Anaerobic Swabs Gram Stain - Final 12/22/24 11:15 Wound Abcess - Aerobic & Anaerobic Swabs Wound Culture - Final No growth aerobically. 12/22/24 11:15 Wound Abcess - Aerobic & Anaerobic Swabs Anaerobic Culture - Preliminary No growth in 48 hours. 12/22/24 04:10 Blood Culture (Wb) - Anticubital Right Blood Culture - Preliminary No growth in 48 hours. 12/22/24 04:05 Blood Culture (Wb) - Left Hand Blood Culture - Preliminary No growth in 48 hours. Dosing Weight Weight used for dosin.5 kg Estimated Creatinine Clearance Estimated Creatinine Clearance: 164ml/min Goal Trough Goal Trough: 10-15 mcg/mL Pharmacy Plan for Drug Dosing Pharmacy Plan for Drug Dosing: The vanc trough drawn at 07:07 today (approx 13 hrs after the previous dose) was 12.4mcg/ml. This is in goal range so will keep same dose. Repeat a trough in 2 days per protocol. Pharmacy Service will continue to monitor and adjust dosing as required. Follow-Up Labs Follow-Up Labs: Trough: Vancomycin Date/Time Labs Ordered Labs to be done on [date and time ordered]: 12/27/24 0633
[2024-12-25] MEDS: Vancomycin HCl 1,750 MG in 0.9% Normal Saline (500mL Bag) 500 ML 250 MG IV (08:40)
--- NOTE | 2024-12-25 08:42 | NURSING ---
VANC LATE BEING HUNG BECAUSE VANC TROUGH WAS NOT DRAWN UNTIL 0700 AND MED JUST CAME TO UNIT
--- NOTE | 2024-12-25 09:46 | WOUNDNOTE ---
wound photo: right lower abdomen
--- NOTE | 2024-12-25 11:25 | PN.SURG_ITS ---
Subjective Subjective Patient seen and evaluated on rounds this morning. He denies any significant issues or complaints. Wound VAC was successfully placed this morning. Patient is hopeful for discharge home later today Objective Data Objective Data Vital Signs: Vital Signs Temp Pulse Resp BP Pulse Ox O2 Del Method 97.3 F L 69 14 123/82 H 99 Room Air 12/25/24 07:27 12/25/24 07:27 12/25/24 07:27 12/25/24 07:27 12/25/24 07:27 12/25/24 07:27 Oxygen Delivery Method Room Air Weight: 192 lb 14.472 oz Body Mass Index (BMI) 24.0 Intake & Output: Intake and Output for Last 24 Hours 12/23/24 12/24/24 12/25/24 23:59 23:59 23:59 Intake Total 3633.50 / 3633.50 3080 / 3480 2821.67 / 2821.67 Balance 3633.50 / 3633.50 3080 / 3480 2821.67 / 2821.67 Lab / Micro Data 12/25/24 07:07 12/25/24 07:07 Labs: Laboratory Results - last 24 hr 12/25/24 07:07: WBC 7.9, RBC 3.71 L, Hgb 10.9 L, Hct 33.6 L, MCV 90.6, MCH 29.4, MCHC 32.4, RDW Std Deviation 43.7, RDW Coeff of Lan 13.2, Plt Count 676 H, MPV 8.7, Immature Gran % (Auto) 3.400 H, Neut % (Auto) 62.0, Lymph % (Auto) 22.9, [place] % (Auto) 8.4, Eos % (Auto) 2.4, Baso % (Auto) 0.9, Absolute Neuts (auto) 4.9, Absolute Lymphs (auto) 1.81, Nucleated RBC % 0, Sodium 143, Potassium 4.0, Chloride 109 H, Carbon Dioxide 25.4, Anion Gap 9, BUN 6, Creatinine 0.76, Estim Creat Clear Calc 163.69, Est GFR (MDRD) Non-Af 121, BUN/Creatinine Ratio 7.3 L, Glucose 116 H, Calcium 7.5 L, Vancomycin Trough 12.4 Micro: Microbiology 12/22/24 11:15 Wound Abcess - Aerobic & Anaerobic Swabs Gram Stain - Final 12/22/24 11:15 Wound Abcess - Aerobic & Anaerobic Swabs Wound Culture - Final No growth aerobically. 12/22/24 11:15 Wound Abcess - Aerobic & Anaerobic Swabs Anaerobic Culture - Preliminary No growth in 48 hours. 12/22/24 04:10 Blood Culture (Wb) - Anticubital Right Blood Culture - Preliminary No growth in 48 hours. 12/22/24 04:05 Blood Culture (Wb) - Left Hand Blood Culture - Preliminary No growth in 48 hours. Physical Exam Narrative He is alert and oriented x 3. He is in no acute distress. Abdomen is soft and wound VAC is in place. Minimal tenderness to palpation. Assessment & Plan Assessment/Plan (1) Abdominal wall abscess: PLAN: Plan Patient is a 34-year-old male who presented with a large abdominal wall abscess. This was successfully drained. Wound VAC was placed this morning. Home health care plans in place to perform at home dressing changes. He has to follow-up in our office next week. Plan is for discharge to home today with oral antibiotics. He is agreeable to this plan. Charges/Coding Visit Charges Inpatient E&M: 36160 [facility] Hosp L1
--- NOTE | 2024-12-25 11:38 | DS.PCM_ITS ---
Providers Date of Admission: 12/22/24 Date of Discharge: 12/25/24 Primary Care Physician: Avis Primary Care Phys Consultations 12/22/24 11:52 Consult: Onc/Wound/global director air and climate change Routine Comment: Reason for Consult:: possible wound vac Reason For Visit: ABDOMINAL WALL ABSCESS Diagnosis Discharge Diagnosis (1) Abdominal wall abscess: Status: Acute Code(s): L02.211 - Cutaneous abscess of abdominal wall Plan Patient is a 34-year-old male who presented with a large abdominal wall abscess. This was successfully drained. Wound VAC was placed this morning. Home health care plans in place to perform at home dressing changes. He has to follow-up in our office next week. Plan is for discharge to home today with oral antibiotics. He is agreeable to this plan. Medications at Discharge Home Medications amoxicillin 875 mg-potassium clavulanate 125 mg tablet 1 tab PO BIDCM 8 days #16 tabs 12/24/24 oxycodone 5 mg tablet 5 mg PO Q6H PRN PRN Pain Score 4-10 4 days #20 tabs 12/24/24 Hospital Course Operations - (Incision and drainage of abdominal wall abscess) Summary of Care Provided Minutes Spent on Discharge: 15 Hospital Course: Patient is a 34-year-old male who presented with a large abdominal wall abscess of uncertain etiology. He was admitted and underwent operative drainage and debridement of this abscess. He was placed on IV antibiotics and wound VAC was placed once the wound was felt to be adequately debrided. Plan is for him to be discharged to home with follow-up next week Physical Exam Const oriented x3 and no apparent distress Weight / BMI Weight Weight: 192 lb 14.472 oz Body Mass Index (BMI) 24.0 ABG / Lab / Microbiology Data 12/25/24 07:07 12/25/24 07:07 Laboratory: Laboratory Results - last 24 hr 12/25/24 07:07: WBC 7.9, RBC 3.71 L, Hgb 10.9 L, Hct 33.6 L, MCV 90.6, MCH 29.4, MCHC 32.4, RDW Std Deviation 43.7, RDW Coeff of Lan 13.2, Plt Count 676 H, MPV 8.7, Immature Gran % (Auto) 3.400 H, Neut % (Auto) 62.0, Lymph % (Auto) 22.9, [place] % (Auto) 8.4, Eos % (Auto) 2.4, Baso % (Auto) 0.9, Absolute Neuts (auto) 4.9, Absolute Lymphs (auto) 1.81, Nucleated RBC % 0, Sodium 143, Potassium 4.0, Chloride 109 H, Carbon Dioxide 25.4, Anion Gap 9, BUN 6, Creatinine 0.76, Estim Creat Clear Calc 163.69, Est GFR (MDRD) Non-Af 121, BUN/Creatinine Ratio 7.3 L, Glucose 116 H, Calcium 7.5 L, Vancomycin Trough 12.4 Microbiology: Microbiology 12/22/24 11:15 Wound Abcess - Aerobic & Anaerobic Swabs Gram Stain - Final 12/22/24 11:15 Wound Abcess - Aerobic & Anaerobic Swabs Wound Culture - Final No growth aerobically. 12/22/24 11:15 Wound Abcess - Aerobic & Anaerobic Swabs Anaerobic Culture - Preliminary No growth in 48 hours. 12/22/24 04:10 Blood Culture (Wb) - Anticubital Right Blood Culture - Preliminary No growth in 48 hours. 12/22/24 04:05 Blood Culture (Wb) - Left Hand Blood Culture - Preliminary No growth in 48 hours. D/C Instructions Call your doctor if your incision/area has: Continuous Slow Oozing, Sudden Increased Bleeding, Increased Pain/ Swelling, Increased Redness, Foul Smelling Discharge and Swelling at the incision site Call your doctor if you observe: Fever of 101 or Higher Suture Line Care: Avoid Pulling/Pushing and Avoid Pinching/Bending Cleanse incision/area with: Soap & Water DC O2, CPAP, BIPAP Needs Home O2 Discharge instructions: No Please Follow Up With: Maryjane Oliveira PA-C When: Please contact our office at [phone], option #2 to schedule a follow- up appointment with our office Meaningful Use Info Meaningful Use Meaningful Use Diagnoses (Choose all that apply): None applicable Discharge Plan Admission Admit Date/Time: 12/22/24 07:01 Primary Reason for Your Visit: Abdominal wall abscess Attending Provider: Jack Hernandez Primary Care Provider: Care Physician,No Primary Instructions Additional Instructions / Restrictions: You will be sent home with a wound vac that will need to be changed 3 times per week You will need to follow-up with our office in 1 week for wound evaluation You will be sent home on oral antibiotics for 8 additional days Please contact our office at [phone], option #2 to schedule a follow-up appointment for 1 week Recommend follow-up on a Saturday, Saturday or Saturday to stay consistent with the wound vac change days Please bring one of the wound vac packs, that will be delivered to your home, with you to your appointment, so the wound vac can be changed Discharge Orders/Prescriptions Prescriptions: New oxycodone 5 mg Tablet 5 mg PO Q6H PRN PRN (Reason: Pain Score 4-10) 4 Days Qty: 20 0RF amoxicillin-pot clavulanate 875-125 mg Tablet 1 tab PO BIDCM 8 Days Qty: 16 0RF Referrals / Follow Up: Sharmaine Mcdaniels MD [Med Staff - Active Staff, Internal Medicine] - 12/28/24 10:00 am Referral Note: Care Physician,No Primary [Primary Care Provider, Medical] Maryjane Oliveira PA-C [Med Staff - Adv Practice Prof, Surgery] - 12/31/24 9:30 am Disposition Disposition (needs filled in before D/C Order can be placed): Home, Self Care
--- NOTE | 2024-12-25 11:56 | CASEMGMT ---
Appt made for PCP on Saturday at 1020. TC to [facility], spoke with Sandra, she is aware of appt and they will plan to see pt in the afternoon or first thing in the morning. She is aware pt is being dc'd this date. Pt is aware that [facility] will be out Saturday and that he has an appt. He is aware this is on his dc instructions. Pt denies any questions at this time.
[2024-12-25 13:08] VITALS: BP 120/79; PULSE 78; RESP 14; TEMP 36.2; O2SAT 100
--- NOTE | 2024-12-25 13:46 | PHA.DC.MC.R ---
Pharmacy [facility] Counseling Pharmacy Service has performed discharge medication reconciliation and counseling for this patient. 1. AUGMENTIN 875MG PO BID X 8 DAYS 2. OXYCODONE 5MG PO Q6H PRN PAIN The patient's discharge medication list was reviewed for discrepancies and discrepancies were resolved. The patient was counseled on the following discharge medications and changes in medications for homegoing were reviewed. The Reason for Use, instructions for use, and potential side effects were reviewed for all new medications. The patient's questions regarding all of their medications were answered. The patient was able to verbally demonstrate an understanding of their discharge medications. Medications at Discharge Home Medications amoxicillin 875 mg-potassium clavulanate 125 mg tablet 1 tab PO BIDCM 8 days #16 tabs 12/24/24 oxycodone 5 mg tablet 5 mg PO Q6H PRN PRN Pain Score 4-10 4 days #20 tabs 12/24/24
== END 2024-12-25 14:23 | disposition home or self-care (01) | DRG 383 ==
LOC: ED 07:15 → MS3 07:46
PROVIDERS: Physician Assistant; Admitting Provider Surgery; Emergency Provider Emergency Medicine; Visit Provider Surgery
PROC: 0JB80ZZ Excision of Abdomen Subcutaneous Tissue and Fascia, Open Approach (ICD-10-PCS; principal; 2024-12-22 07:45)
DX: L02.211 Cutaneous abscess of abdominal wall (principal); F10.90 Alcohol use, unspecified, uncomplicated; F17.210 Nicotine dependence, cigarettes, uncomplicated
CPT/HCPCS: 36415; 74177; 80048; 80076; 80202; 82077; 83605; 83735; 85025; 87015; 87040; 87070; 87075; 87116; 87205; 87206; 99283; 99406; Q9967; A4216; J2405